=== PATIENT | male | born 1970 | race Two or more races ===

== ENCOUNTER 2022-12-20 14:23 | Emergency (ER) | payer OTHER ==
[~2022-12-20] VITALS: Ht 172.7 cm; Wt 71.8 kg
[2022-12-20] MEDS ORDERED: LISI2.5T91 PO (14:52)
[2022-12-20] MEDS ORDERED: GLIM2TAB30 PO (14:52)
[2022-12-20] MEDS ORDERED: EMPA10TA3 PO (14:52)
[2022-12-20] MEDS ORDERED: AMLO10TA55 PO (15:00)
[2022-12-20] MEDS ORDERED: CEPH-558 PO (18:41)
[2022-12-20] MEDS ORDERED: BACI28OI29 TP (18:53)
[2022-12-20] MEDS ORDERED: NEOMYCIN/BACITRACIN/POLYMYXIN B OINTMENT PACKET TP ONE (19:00)
[2022-12-20 19:39] VITALS: BP 138/72
== END 2022-12-20 20:00 | disposition home or self-care (01) ==
LOC: EMS 14:34
DX: T25.232A Burn of second degree of left toe(s) (nail), initial encounter (principal); T31.0 Burns involving less than 10% of body surface; E11.9 Type 2 diabetes mellitus without complications; I10 Essential (primary) hypertension
CPT/HCPCS: 16020; 99283

== ENCOUNTER 2023-01-11 19:35 | Emergency (ER) | payer OTHER ==
[~2023-01-11] VITALS: Ht 167.6 cm; Wt 71.0 kg
[~2023-01-11 19:35] MED LIST: AMLO10TA55 PO; BACI28OI9 TP; CEPH-558 PO; EMPA10TA3 PO; GLIM2TAB30 PO; LISI2.5T91 PO
[2023-01-11 23:48] LABS: BASOPHILS % (AUTO) 0.7 % (0.0-2.0); EOSINOPHILS % (AUTO) 0.3 % (1.0-6.0); HEMATOCRIT 33.5 % (41-53); HEMOGLOBIN 11.8 g/dL (13.5-17.5); LYMPHOCYTES # (AUTO) 2.2 K/uL (1.0-4.8); LYMPHOCYTES % (AUTO) 26.3 % (22.0-44.0); MEAN CORPUSCULAR HEMOGLOBIN 31.3 pg (26.0-34.0); MEAN CORPUSCULAR VOLUME 90 fL (80-100); MONOCYTES # (AUTO) 0.6 K/uL (0.1-1.0); NEUTROPHILS # (AUTO) 5.4 K/uL (1.8-7.7); NEUTROPHILS % (AUTO) 65.7 % (40.0-70.0); PLATELET COUNT (AUTO) 351 K/uL (150-450); RED BLOOD CELL COUNT(AUTO) 3.75 MIL/uL (4.50-5.90); RED CELL DISTRIBUTION WIDTH 13.7 % (11.5-14.5)
[2023-01-11 23:49] LABS: CALCIUM, TOTAL 9.5 mg/dL (8.8-10.5); CREATININE 1.43 mg/dL (0.60-1.30); POTASSIUM 4.3 mmol/L (3.5-5.1)
[2023-01-12 00:15] LABS: ALBUMIN 3.8 g/dL (3.4-5.0); BILIRUBIN,TOTAL 0.4 mg/dL (0.1-1.0); TOTAL PROTEIN, SERUM 7.5 g/dL (6.4-8.2)
[2023-01-12 00:51] VITALS: BP 143/84
== END 2023-01-12 00:56 | disposition home or self-care (01) ==
LOC: EMS 19:35
DX: R51.9 Headache, unspecified (principal); R20.2 Paresthesia of skin; E11.9 Type 2 diabetes mellitus without complications; I10 Essential (primary) hypertension
CPT/HCPCS: 80053; 82550; 82962; 83880; 84484; 85025; 93005; 99284